=== PATIENT | male | born 1990 | race Caucasian/White ===

== ENCOUNTER 2017-08-21 00:39 | Emergency (ER) | payer BC ==
[~2017-08-21] VITALS: Ht 182.9 cm; Wt 105.2 kg
[2017-08-21] MEDS ORDERED: AMOXICILLIN 50500 M1 PO (00:55)
[2017-08-21] MEDS ORDERED: IBUPROFEN 800800 M1 PO (00:55)
[2017-08-21] MEDS ORDERED: LITHIUM CARBON300 M3 PO (01:01)
[2017-08-21] MEDS ORDERED: XANAX1 MG PO (01:02)
[2017-08-21 01:17] VITALS: BP 169/117
== END 2017-08-21 05:27 | disposition home or self-care (01) ==
LOC: ER 00:39
DX: K02.9 Dental caries, unspecified (principal)

== ENCOUNTER 2018-11-12 11:34 | Emergency (ER) | payer OTHER ==
[~2018-11-12] VITALS: Ht 185.4 cm; Wt 108.9 kg
[~2018-11-12 11:34] MED LIST: AMOXICILLIN 50500 M1 PO; IBUPROFEN 800800 M1 PO; LITHIUM CARBON300 M3 PO; XANAX1 MG PO
[2018-11-12 13:20] VITALS: BP 124/83
[2018-11-12] MEDS ORDERED: IBUPROFEN 600600 M1 PO (13:25)
[2018-11-12] MEDS ORDERED: AMOXICILLIN 50500 MG PO (13:25)
== END 2018-11-12 13:31 | disposition home or self-care (01) ==
LOC: ER 11:34
DX: K02.9 Dental caries, unspecified (principal); F31.9 Bipolar disorder, unspecified; J45.909 Unspecified asthma, uncomplicated